=== PATIENT | female | born 1955 | race Caucasian/White ===

== ENCOUNTER 2024-03-08 17:27 | Inpatient (IN) ==
[2024-03-08] MEDS ORDERED: Dextrose 50% Syringe 50 ml 25 GM/50 ML SYRINGE IV PUSH PRN (18:41)
[2024-03-08] MEDS ORDERED: DULoxetine DR 30 mg CAP PO SCH (19:00)
[2024-03-08] MEDS: NS 0.9% 1000 ml BAG 1,000 ML IV SCH (22:37)
[2024-03-08] MEDS: Enoxaparin 40 MG/0.4 ML SYR SUBCUT SCH (22:39)
[2024-03-09 07:17] LABS: ABS Eosinophils 0.1 10^3/uL (0.0-0.5); ABS Lymphocytes 1.2 10^3/uL (1.0-4.8); ABS Monocytes 0.6 10^3/uL (0.0-0.9); ABS Neutrophils 2.8 10^3/uL (1.5-7.6); Eosinophil % 1.7 %; Hematocrit 36.5 % (35-45); Hemoglobin 12.7 g/dL (11.5-14.3); Lymphocyte % 25.1 %; Mean Corpuscular Hgb Conc 34.9 g/dL (31-36); Mean Corpuscular Volume 91.7 fL (80-97); Mean Platelet Volume 7.5 fL (7.5-11.2); Nucleated Red Blood Cells % 0.1 %/100WBC (0.0-0.8); Platelet Count 279 10^3/uL (150-450); Red Blood Count 3.98 10^6/uL (3.63-4.92); Red Cell Distribution Width 12.4 % (12-17); White Blood Count 4.7 10^3/uL (3.8-11.8)
[2024-03-09 07:27] LABS: Calcium 8.8 mg/dL (8.6-10.3); Creatinine, Serum 0.59 mg/dL (0.51-0.95); Magnesium 1.6 mg/dL (1.9-2.7); Potassium 3.3 mmol/L (3.5-5.0); eGFR CKD-EPI 97.5 (>60)
[2024-03-09] MEDS: DULoxetine DR 30 mg CAP PO SCH (09:35)
[2024-03-09] MEDS: Potassium Chloride LIQUID 20 MEQ/15 ML LIQUID PO ONE (10:54)
[2024-03-09] MEDS: Magnesium Sulfate 2 gm BAG 2 GM/50 ML BAG IVPB ONE (10:56)
[2024-03-09] MEDS: KCL 20 MEQ/100 ML IVPREMIX 20 MEQ/100 ML BAG IV ONE (12:15)
[2024-03-09] MEDS ORDERED: Sulfur Hexaflouride MICROSPHR 25 MG VIAL IV PRN (16:27)
[2024-03-10 06:37] LABS: ABS Lymphocytes 0.9 10^3/uL (1.0-4.8); ABS Monocytes 0.7 10^3/uL (0.0-0.9); ABS Neutrophils 4.8 10^3/uL (1.5-7.6); Eosinophil % 0.6 %; Hematocrit 37.8 % (35-45); Hemoglobin 13.2 g/dL (11.5-14.3); Lymphocyte % 13.6 %; Mean Corpuscular Hemoglobin 31.9 pg (27-33); Mean Corpuscular Volume 91.1 fL (80-97); Mean Platelet Volume 7.6 fL (7.5-11.2); Platelet Count 316 10^3/uL (150-450); Red Blood Count 4.15 10^6/uL (3.63-4.92); Red Cell Distribution Width 12.7 % (12-17); White Blood Count 6.4 10^3/uL (3.8-11.8)
[2024-03-10 06:57] LABS: Creatinine, Serum 0.54 mg/dL (0.51-0.95); Magnesium 1.7 mg/dL (1.9-2.7); Potassium 3.5 mmol/L (3.5-5.0); eGFR CKD-EPI 99.6 (>60)
[2024-03-10] MEDS: Aspirin EC 81 mg TAB.EC (enteric coated) PO SCH (08:06)
[2024-03-10] MEDS: Magnesium Sulfate 2 gm BAG 2 GM/50 ML BAG IVPB ONE (08:06)
[2024-03-10 10:40] LABS: HDL Cholesterol 67.6 mg/dL
[2024-03-11 00:58] LABS: Urine Benzodiazepine Screen None Detected (None Detect); Urine Cannabinoids Screen None Detected (None Detect); Urine Opiates Screen None Detected (None Detect)
[2024-03-11] MEDS: Aspirin EC 325 mg TAB.EC PO SCH (08:53)
[2024-03-11 12:38] LABS: Urine Appearance Clear; Urine Bilirubin Negative (Negative); Urine Blood Negative (Negative); Urine Color Colorless; Urine Glucose 4+ (>=1000 mg/dL) (Negative); Urine Ketones Negative (Negative); Urine Nitrite Negative (Negative); Urine Protein Negative (Negative); Urine Urobilinogen Negative (Negative); Urine pH 6.5 (5.0-8.0)
[2024-03-11 14:15] VITALS: BP 156/86
== END 2024-03-11 14:24 | disposition home health service (06) | DRG 948 ==
LOC: MEDTELE 17:27 → INTOOBSV 17:34 → SUATTDRO 17:34
PROVIDERS: ADMIT Student in an Organized Health Care Education/Training Program; ATTEND Internal Medicine